=== PATIENT | male | born 1955 | race Caucasian/White ===

== ENCOUNTER 2020-10-22 08:49 | Outpatient (CLI) | payer MEDICARE, OTHER, SELFPAY ==
--- NOTE | ~2020-10-22 | MR_ITS ---
EXAMINATION: MR forearm LT wo con DATE: 10/22/2020 11:05 INDICATION: Left forearm pain. TECHNIQUE: Magnetic resonance imaging (MRI) of the left forearm was performed without intravenous con trast. Sequences included axial, coronal, and sagittal T1-weighted FSE and STIR FSE. COMPARISON: Left forearm radiographs 10/06/2020 FINDINGS: Bone alignment is normal. No fracture. The elbow joint spaces are normal. No elbow joint ef fusion. There is moderate biceps tendinopathy. There is moderate bicipitoradial bursitis. The brachia lis tendon is normal. There is moderate common extensor tendinopathy. No tear. The common flexor tend on is normal. The musculature is normal. IMPRESSION: 1. Moderate biceps tendinopathy. 2. Moderate bicipital radial bursitis. 3. Moderate common extensor tendinopathy at lateral humeral epicondyle. Reviewed, dictated and finalized at location A.
== END 2020-10-22 08:50 | disposition home or self-care (01) ==
PROVIDERS: Visit Provider Nurse Practitioner Family
DX: M79.632 Pain in left forearm (principal); M75.52 Bursitis of left shoulder
CPT/HCPCS: 73218

== ENCOUNTER 2022-02-20 00:02 | Day surgery (SDC) | payer MEDICARE, SELFPAY ==
[2022-02-01 13:57] VITALS: BMI 25.1
[2022-02-20 10:15] VITALS: BP 132/80; PULSE 65; RESP 16; TEMP 36.6; O2SAT 98; BMI 24.5
[2022-02-20] MEDS: LACTATED RINGERS 1,000 ML 150 ML IV CONT (10:27)
--- NOTE | 2022-02-20 11:00 | PM.IMHP ---
H&P: HPI History of Present Illness Date/Time: 02/20/22 11:00 Chief Complaint: Family history of colon cancer. Narrative: This is a 66-year-old white male patient seen in evaluation for screening colonoscopy. Patient's mother and father both have had colon cancer. Patient presents today for neoplasia screening. Patient reports his bowel habits are normal. He denies abdominal pain. He has had no bleeding. Review of Systems Review of Systems: Review of systems noncontributory. [facility] Past Medical History Medical History Arthritis History of lateral epicondylitis of left elbow Injury of left forearm Lateral epicondylitis Left forearm pain Melanoma Tendonitis, bicipital Surgical History Surgical History History of arthroscopy of right shoulder History of tonsillectomy Skin cancer (melanoma) Family History Family History Unknown Colon cancer Mother Colon cancer Leukemia Father Colon cancer Social History Social History Smoking status: Never smoker Second hand tobacco smoke exposure: No Alcohol intake: never Substance use: never Substance use type: does not use Living arrangements: with family Gender identity (if verbalized by the patient): Male Spiritual care concerns: No Agree to blood products: Yes Meds Home Medications and Allergies Home Medications Medication Instructions Recorded Confirmed Type No Home Medications 02/01/22 02/20/22 History Allergies Allergy/AdvReac Type Severity Reaction Status Date / Time No Known Allergies Allergy Verified 02/20/22 10:14 Vital Signs Vital Signs - 24 hr 02/20/22 10:15 Temperature 97.8 F Pulse Rate 65 Respiratory Rate 16 Blood Pressure 132/80 Pulse Oximetry 98 Oxygen Delivery Room Air Exam Narrative: Physical exam reveals patient to be alert. Vital signs stable. HEENT exam is unremarkable. Patient is anicteric. Lungs are clear to auscultation and percussion. Heart is without murmur or extra sounds. Abdominal exam bowel sounds are present soft nontender with no organomegaly. Digital external rectal exam is normal. Assessment and Plan Assessment and plan (1) Family history of colon cancer: Code(s): Z80.0 - Family history of malignant neoplasm of digestive organs Status: Acute Assessment and Plan: Patient's family history is significant for colon cancer in both mother and father. Patient reports he may have had colon polyps many years ago that was benign and hyperplastic. Patient presents today for neoplasia screening.
--- NOTE | 2022-02-20 11:28 | P.PNAN_ITS ---
Anes - Initial Pre Proc Eval Procedure: Operation Date: 02/20/22 11:30 Proposed Procedures p Screening Colonoscopy - Dani Iglesias MD Date/Time: 02/20/22 11:28 Surgeon: Dani Iglesias MD Pre Op Diagnosis: hx of colon polyps; family hx of colon ca Patient Data Age: 66 Gender: M Height: 1.83 m Weight: 82.1 kg Last Vital Signs Temp 97.8 F 02/20/22 10:15 Pulse 65 02/20/22 10:15 Resp 16 02/20/22 10:15 BP 132/80 02/20/22 10:15 Pulse Ox 98 02/20/22 10:15 O2 Del Method Room Air 02/20/22 10:15 Allergies Allergy/AdvReac Type Severity Reaction Status Date / Time No Known Allergies Allergy Verified 02/20/22 10:14 Home Medications Medication Instructions Recorded Confirmed Type No Home Medications 02/01/22 02/20/22 History Patient hx anesthesia problems: none Family hx anesthesia problems: none Results Review: All pre-operative results and documents have been reviewed as part of the pre- operative evaluation. [facility] Past Medical History Medical History Arthritis History of lateral epicondylitis of left elbow Injury of left forearm Lateral epicondylitis Left forearm pain Melanoma Tendonitis, bicipital Surgical History Surgical History History of arthroscopy of right shoulder History of tonsillectomy Skin cancer (melanoma) Family History Family History Unknown Colon cancer Mother Colon cancer Leukemia Father Colon cancer Social History Social History Smoking status: Never smoker Second hand tobacco smoke exposure: No Alcohol intake: never Substance use: never Substance use type: does not use Living arrangements: with family Gender identity (if verbalized by the patient): Male Spiritual care concerns: No Agree to blood products: Yes Anes - Eval Final PreProcedure Day of Procedure 02/20/22 11:28 Patient weight: normal Heart: regular rate and rhythm Lungs: clear to auscultation Airway: Mallampati scale class II Neurological: alert and oriented Last oral intake: >/= 8 hours ASA classification: II Emergent: no Anesthetic plan: proceed Anesthesia type and monitoring: general GIVS and standard monitoring Results Review: All pre-operative results and documents have been reviewed as part of the pre- operative evaluation. Informed Consent: The patient's anesthetic plan and its attendant risks and benefits were discussed with the patient/family/POA. Questions were solicited and answers provided to the satisfaction of the patient/family/POA.
[2022-02-20 11:51] VITALS: BP 86/57; PULSE 56; RESP 20; O2SAT 98
[2022-02-20 12:01] VITALS: BP 103/58; PULSE 59; RESP 20; O2SAT 100
[2022-02-20 12:11] VITALS: BP 116/74; PULSE 55; RESP 14; O2SAT 100
== END 2022-02-20 12:18 | disposition home or self-care (01) ==
PROVIDERS: PCP Family Medicine; Visit Provider Internal Medicine Gastroenterology
PROC: 0DJD8ZZ Inspection of Lower Intestinal Tract, Via Natural or Artificial Opening Endoscopic (ICD-10-PCS; CPT 45378; principal; 2022-02-20 11:30)
DX: Z12.11 Encounter for screening for malignant neoplasm of colon (principal); Z80.0 Family history of malignant neoplasm of digestive organs; K64.8 Other hemorrhoids; Z86.010 Personal history of colon polyps; M19.90 Unspecified osteoarthritis, unspecified site
CPT/HCPCS: G0105; J2704; J7120

== ENCOUNTER 2025-03-02 02:22 | Day surgery (SDC) | payer MEDICARE, SELFPAY ==
[2025-02-15 13:57] VITALS: BMI 23.1
--- OUTSIDE RECORDS SUMMARY | 2025-03-02 02:24 | XMS_ITS | Clinical Summary ---
Author Organization [facility] Address [facility] [place] [address] Care Team Providers Care Jig And Fixture Repairer Name Role Phone Unavailable Primary Care Provider Unavailabl e Social History Tobacco Use Types Packs/Day Years Used Date Smoking Tobacco: Never Assessed Sex and Gender Information Value Date Recorded Sex Assigned at Not on file Legal Sex Male 6:29 PM CDT Gender Identity Not on file Sexual Orientation Not on file Plan of Treatment Health Maintenance Due Date Last Done Comments Colorectal Cancer Screening Colonoscopy (10 Years) 1955 Hepatitis C 11/17/1973 Pneumococcal Vaccine: 50+ Ye ars (1 of 1 - PCV) 11/17/2005 Zoster Vaccines (1 of 2) 11/17/2005 Annual Medicare Wellness Visit 11/17/2020 COVID-19 Vaccine (1 - 2023-2 5 season) 2024 RSV Immunization or 60+ Years (1 - 1-dose 75+ series) 11/17/2030 DTaP, Tdap and Td Vaccines ( 2 - Td or Tdap) 02/16/2031 02/16/2021 Meningococcal B Vaccine Aged Out No l onger eligible based on patient's age to complete this topic Meningococcal Vaccine Aged Out No judy quique eligible based on patient's age to complete this topic RSV Immunizations Under 20 Months Aged Out No longer eligible based on patient's age to complete this topic Insurance [facility]
--- OUTSIDE RECORDS SUMMARY | 2025-03-02 02:25 | XMS_ITS | Clinical Summary ---
Author Organization [facility] Address [address] [place] [address] Phone Care Team Providers Care Intensive Care Medicine Specialist Name Role Phone Eran Vera MD Primary Care Provider Allergies No known active allergies Medications No known medications Active Problems Problem Noted Date Diagnosed Date Numbness 10/08/2013 EKG abnormalities 10/08/2013 Social History Tobacco Use Types Packs/Day Years Used Date Smoking Tobacco: Never Alcohol Use Standard Drinks/Week Comments No 0 (1 standard drink = 0.6 oz pur e alcohol) Sex and Gender Information Value Date Recorded Sex Assigned at Not on file Legal Sex Male 10:40 AM CDT Gender Identity Not on file Sexual Orientation Not on file Last Filed Vital Signs Vital Sign Reading Time Taken Comments Blood Pressure 120/77 10/09/2013 10:51 AM CDT Pulse 70 10/09/2013 10:51 AM CDT Temperature 36.7 C (98.1 F) 10/09/2013 10:51 AM CDT Respiratory Rate 18 10/09/2013 10:51 AM CDT Oxygen Saturation 100% 10/09/2013 10:51 AM CDT Inhaled Oxygen Concentration - - Weight 83.9 kg (185 lb) 10/08/2013 11:03 AM CDT Height 185.4 cm (6' 1) 10/08/2013 11:03 AM CDT Body Mass Index 24.41 10/08/2013 11:03 AM CDT Plan of Treatment Health Maintenance Due Date Last Done Comments DTAP/TDAP/TD VACCINES (1 - Tdap) 11/17/1974 COLORECTAL SCREENING 11/17/2000 Colorectal Cancer Screening 11/17/2000 FIT-DNA Q 3 years 11/17/2000 FIT/FOBT Q 1 year 11/17/2000 Flex Sig/CT Colonography Q 5 years 11/17/2000 PNEUMOCOCCAL VACCINE 50+ YEARS (1 of 1 - PCV) 11/18/19 06 ZOSTER VACCINE (1 of 2) 11/17/2005 INFLUENZA VACCINE (#1) 2025 RSV VACCINE (60+ or ) (1 - 1-dose 75+ series) 11/17/2030 Advance Directives For more information, please contact: [phone] * Full Code (Latest Code Status on File) Date Activated Date Inactivated Comments 10/08/2013 5:53 PM 10/09/2013 5:39 PM Care Teams Intensive Care Medicine Specialist Relationship Specialty Start Date End Date Eran Vera MD [address] [place] [id number] PCP - General Family Practice 10/08/13
--- OUTSIDE RECORDS SUMMARY | 2025-03-02 02:25 | XMS_ITS | Clinical Summary ---
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 EKG abnormalities 10/08/2013 Numbness 10/08/2013 Surgical History Surgery Date Site/Laterality Comments SKIN CANCER EXCISION Medical History Medical History Date Comments Cancer (HCC) melanoma back; s quamous cell face Family History Medical History Relation Name Comments Cancer Father Family history of malignant neoplasm - (Added by TW Conv) Cancer Mother Family history of malignant neoplasm - (Added by TW Conv) Relation Name Status Comments Father Mother Social History Tobacco Use Types Packs/Day Years Used Date Smoking Tobacco: Never Smokeless Tobacco: Never Tobacco Cessation:Counseling Given: Not Answered AUDIT-C Answer Date Recorded Q1: How often do you have a drink containing alcohol? Never 07/12/2022 Q2: How many drinks containi ng alcohol do you have on a typical day when you are drinking? Patient does not drink Q3: How often do you have si x or more drinks on one occasion? 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 Not on file Not on file Not on file Obstetrics History Last Filed Vital Signs Vital Sign Reading Time Taken Comments Blood Pressure 134/91 07/12/2022 7:55 AM LANDSCAPE PHOTOGRAPHER Pulse 54 07/12/2022 7:55 AM LANDSCAPE PHOTOGRAPHER Temperature 36.7 C (98 F) 07/12/2022 7:40 AM LANDSCAPE PHOTOGRAPHER Respiratory Rate 14 07/12/2022 7:55 AM LANDSCAPE PHOTOGRAPHER Oxygen Saturation 97% 07/12/2022 7:55 AM LANDSCAPE PHOTOGRAPHER Inhaled Oxygen Concentration - - Weight 88.7 kg (195 lb 9.6 oz) 07/12/2022 6:10 A M LANDSCAPE PHOTOGRAPHER Height 182.9 cm (6') 07/12/2022 6:10 AM LANDSCAPE PHOTOGRAPHER Body Mass Index 26.53 07/12/2022 6:10 AM LANDSCAPE PHOTOGRAPHER Plan of Treatment Health Maintenance Due Date Last Done Comments Colon Cancer Screening-Colonoscopy 1955 Depression Screening 1955 Hepatitis C Screening 1955 Prostate Cancer Screening-PSA 1955 Hepatitis B Screening 11/17/1973 Pneumococcal vaccine 65+ (1 of 1 - PCV) 11/17/2005 Zoster Vaccine (1 of 2) 11/17/2005 Abdominal Aortic Aneurysm (AAA) Screen 11/17/2020 Well Visit 65+ 11/17/2020 Fall Risk Assessment 07/12/2023 07/12/2022 Influenza Vaccine (#1) 2025 DTaP/Tdap/Td Vaccine (2 - Td or Tdap) 02/16/2031 Insurance [facility] MEDICARE ADVANTAGE Care Teams Mixer Tender Relationship Specialty Start Date End Date Alyssa Del Valle DO [address] [place] [id number] PCP - General Family Medicine 07/03/22
--- OUTSIDE RECORDS SUMMARY | 2025-03-02 02:25 | XMS_ITS | Patient Health Record ---
Author Organization [facility] Address [facility] [address] Care Team Providers Care Warehouse Distribution Specialist Name Role Phone Jeffery Heaton Primary Care Provider Reason For Referral No Information Plan Of Treatment No Information
[2025-03-02 11:30] VITALS: BP 113/95; PULSE 67; RESP 18; TEMP 36.7; O2SAT 98
[2025-03-02] MEDS: LACTATED RINGERS 1,000 ML 150 ML IV CONT (11:56)
--- NOTE | 2025-03-02 12:42 | WPDANESEPPF ---
Anes - Initial Pre Proc Eval Procedure: Operation Date: 03/02/25 14:30 Proposed Procedures p Colonoscopy - Herson Augustine MD Date/Time: 03/02/25 12:42 Surgeon: Herson Augustine MD Pre Op Diagnosis: Diarrhea, unspecified,Change in bowel habit Patient Data Age: 69 Gender: M Height: 1.83 m Weight: 74.6 kg Last Vital Signs Temp 98.1 F 03/02/25 11:30 Pulse 67 03/02/25 11:30 Resp 18 03/02/25 11:30 BP 113/95 H 03/02/25 11:30 Pulse Ox 98 03/02/25 11:30 O2 Del Method Room Air 03/02/25 11:30 Allergies Allergy/AdvReac Type Severity Reaction Status Date / Time No Known Allergies Allergy Verified 02/15/25 13:56 Home Medications ?Medication ?Instructions ?Recorded ?Confirmed ?Type No Home Medications 02/15/25 02/15/25 History Patient hx anesthesia problems: none Family hx anesthesia problems: none Results Review: All pre-operative results and documents have been reviewed as part of the pre-operative evaluation. [facility] Past Medical History Medical History Elevated fecal calprotectin Family history of ulcerative colitis Melanoma Arthritis Tendonitis, bicipital Lateral epicondylitis History of lateral epicondylitis of left elbow Injury of left forearm Left forearm pain Surgical History Surgical History H/O colonoscopy 02/20/22 rpt 5 years History of tonsillectomy Skin cancer (melanoma) History of arthroscopy of right shoulder Family History Family History Unknown Colon cancer Mother Colon cancer Leukemia Father Colon cancer Social History Social History Smoking status: Never smoker Second hand tobacco smoke exposure: No Alcohol intake: never Substance use: never Substance use type: does not use Living arrangements: with family Occupation/Education: retired Gender identity (if verbalized by the patient): Male Spiritual care concerns: No Agree to blood products: Yes Anes - Eval Final PreProcedure Day of Procedure 03/02/25 12:42 Patient weight: normal Lungs: normal air movement Airway: Mallampati scale class II Neurological: alert and oriented Last oral intake: >/= 8 hours ASA classification: I Emergent: no Anesthetic plan: proceed Anesthesia type and monitoring: general GIVS and standard monitoring Results Review: All pre-operative results and documents have been reviewed as part of the pre-operative evaluation. Healthy, very active working in the yard, no cp or sob. Informed Consent: The patient's anesthetic plan and its attendant risks and benefits were discussed with the patient/family/POA. Questions were solicited and answers provided to the satisfaction of the patient/family/POA.
--- NOTE | 2025-03-02 12:59 | PM.HPGS ---
History of Present Illness History of Present Illness Consent: Risks, benefits, and alternatives have been discussed and questions answered. Patient agrees to proceed with procedure. Chief complaint: Diarrhea, unspecified,Change in bowel habit Narrative: Charles Rodriguez is a 69 year old male with recent diarrhea, had colonoscopy 2021. Both parents had colon cancer, one brother with UC and also colon cancer. Review of Systems Review of Systems: All systems reviewed & are unremarkable except as noted in HPI and below PMFSH Past Medical History Medical History Elevated fecal calprotectin Family history of ulcerative colitis Melanoma Arthritis Tendonitis, bicipital Lateral epicondylitis History of lateral epicondylitis of left elbow Injury of left forearm Left forearm pain Surgical History Surgical History H/O colonoscopy 02/20/22 rpt 5 years History of tonsillectomy Skin cancer (melanoma) History of arthroscopy of right shoulder Family History Family History Unknown Colon cancer Mother Colon cancer Leukemia Father Colon cancer Social History Social History Smoking status: Never smoker Second hand tobacco smoke exposure: No Alcohol intake: never Substance use: never Substance use type: does not use Living arrangements: with family Occupation/Education: retired Gender identity (if verbalized by the patient): Male Spiritual care concerns: No Agree to blood products: Yes Meds Home Medications and Allergies Home Medications ?Medication ?Instructions ?Recorded ?Confirmed ?Type No Home Medications 02/15/25 02/15/25 History Allergies Allergy/AdvReac Type Severity Reaction Status Date / Time No Known Allergies Allergy Verified 02/15/25 13:56 Vital Signs Vital Signs - 24 hr 03/02/25 11:30 Temperature 98.1 F Pulse Rate 67 Respiratory Rate 18 Blood Pressure 113/95 H Pulse Oximetry 98 Oxygen Delivery Room Air Exam Const: General: comfortable and no acute distress HENMT: Face/Nose/Sinus: Normal nares present Eyes: General: appearance normal, both eyes and all related structures Neck: Neck: no JVD Resp: Auscultation: clear to auscultation bilaterally Cardio: Rate: regular rate Rhythm: regular rhythm GI: Inspection: non-distended GI Palp: Yes Soft to palpation Skin: General skin exam: normal color Neuro: General: gait normal Speech: normal speech Extrem: General: normal to inspection Psych: Mental Status: mental status grossly normal Assessment and Plan Assessment and plan (1) Diarrhea: Code(s): R19.7 - Diarrhea, unspecified Status: Acute Assessment and Plan: colonoscopy with bx (2) Family history of colon cancer: Code(s): Z80.0 - Family history of malignant neoplasm of digestive organs Status: Acute
--- NOTE | 2025-03-02 13:14 | S_PTH ---
PATIENT: Charles Rodriguez LOC: [facility]#:[id number] AGE/SX: 69/M ROOM: RE03/02/[address]: Herson Augustine MD : 1955 BED: DIS: 03/02/2025 SPEC #: [id number] RECD: 03/02/25 14:00 STATUS: DIPAK REVicki #: [id number] DENY: 03/02/25 13:[address]: Herson Augustine DEPT: [facility] RECD BY: Delia Rey ENTERED: 03/02/25 14:00 SP TYPE: Surgical OTHR DR: Won MinayaMD Tissues: A - Colon Biopsy Procedures: Hematoxylin and Eosin Stain Gross and Microscopic Level 4
[2025-03-02 13:16] VITALS: BP 90/50; PULSE 59; RESP 20; O2SAT 98
[2025-03-02 13:26] VITALS: BP 100/58; PULSE 64; RESP 20; O2SAT 98
[2025-03-02 13:36] VITALS: BP 104/66; PULSE 52; RESP 17; O2SAT 98
== END 2025-03-02 13:44 | disposition home or self-care (01) ==
PROVIDERS: PCP Family Medicine; Referring Provider Nurse Practitioner Family; Visit Provider Internal Medicine Gastroenterology
PROC: 0DJD8ZZ Inspection of Lower Intestinal Tract, Via Natural or Artificial Opening Endoscopic (ICD-10-PCS; CPT 45378; principal; 2025-03-02 14:30)
DX: K52.832 Lymphocytic colitis (principal); K64.8 Other hemorrhoids; M19.90 Unspecified osteoarthritis, unspecified site; Z98.890 Other specified postprocedural states; Z85.820 Personal history of malignant melanoma of skin; Z80.6 Family history of leukemia; Z80.0 Family history of malignant neoplasm of digestive organs
CPT/HCPCS: 45380; 88305; J2003; J2704; J7120